=== PATIENT | female | born 1990 | race Caucasian/White ===

== ENCOUNTER 2023-07-14 18:59 | Emergency (ER) | payer MEDICAID, SELFPAY ==
[2023-07-14 19:40] VITALS: BP 119/75; PULSE 83; RESP 20; TEMP 36.4; O2SAT 100
[2023-07-14 20:02] LABS: Basophils Percent Auto 0.1 % (0.2-1.2); Eosinophils Absolute Auto 0.2 K/mm3 (0-0.3); Eosinophils Percent Auto 1.7 % (0-4.4); Hematocrit 32.1 % (37.0-47.0); Hemoglobin 10.5 g/dL (12.0-15.0); Immature Granulocyte Absolute 0.04 K/mm3 (0.00-0.031); Immature Granulocyte Percent A 0.3 % (0-0.5); Lymphocytes Absolute Auto 2.85 K/mm3 (0.9-3.2); Lymphocytes Percent Auto 21.3 % (18.3-44.2); Mean Corpuscular HGB Conc 32.7 g/dl (32-36); Mean Corpuscular Hemoglobin 26.8 pg (26-34); Mean Corpuscular Volume 81.9 fl (80-100); Mean Platelet Volume 10.3 fl (7.4-10.4); Monocytes Absolute Auto 0.6 K/mm3 (0.1-0.6); Monocytes Percent Auto 4.7 % (2.6-8.5); Neutrophils Absolute Auto 9.6 K/mm3 (1.3-6.7); Neutrophils Percent Auto 71.9 % (45.5-73.1); Platelet Count Result 201 k/mm3 (150-375); Red Blood Count 3.92 M/mm3 (4.2-5.4); Red Cell Distribution Width 13.4 % (11.5-14.5); White Blood Count 13.4 K/mm3 (4.5-10.0)
[2023-07-14 20:06] LABS: Appearance Urine Turbid (Clear); Bacteria Urine 4+ /hpf; Bilirubin Urine Negative (Negative); Blood Urine 3+ (Negative); Color Urine Yellow (Yellow); Glucose Urine UA Negative (Negative); Ketones Urine Trace mg/dL (Negative); Leukocyte Esterase Ur 3+ LEU/UL (Negative); Nitrate Urine Positive (Negative); Non Pathogenic Casts 0-2; Protein Urine 2+ mg/dL (Negative); RBC Urine 51-100 /hpf (0-2); Specific Grav Ur 1.018 (1.001-1.035); Squamous Epithelial Cell Urine Moderate /hpf (Few); Urobilinogen Urine 0.2 mg/dL (<2.0); WBC Urine >100 /hpf; pH Urine 5.5 (5.0-9.0)
[2023-07-14 20:08] LABS: Add Urine Microscopic? YES
[2023-07-14 20:14] LABS: Alanine Aminotransferase 28 U/L (6-35); Alkaline Phosphatase 72 U/L (38-126); Anion Gap 8 mmol/L (8-16); Aspartate Amino Transferase 25 U/L (14-36); Bilirubin,Total 0.5 mg/dL (0.2-1.3); Blood Urea Nitrogen 7 mg/dL (7-17); Carbon Dioxide 22 mmol/L (22-30); Chloride 104 mmol/L (98-107); Estimated CRCL calculation 120 ml/min; Estimated Glomerular Filt Rate > 60; Glucose 90 mg/dL (65-110); Potassium 3.5 mmol/L (3.4-5.0); Sodium 134 mmol/L (137-145)
--- NOTE | 2023-07-14 21:13 | ED.GENADULT ---
HPI - General Adult General Chief complaint: Abdominal Pain Stated complaint: RIGHT FLANK Time Seen by Provider: 07/14/23 21:12 History of Present Illness HPI narrative: Patient presents to the emergency department with concern for urinary tract infection and possibly pyelonephritis. She has noted that her urine is more concentrated and she has been drinking a lot more fluids. Today started having right-sided abdominal pain in the flank area. Denies fevers or chills. Was seen at her doctor's 2 weeks ago and told that she does not have a urinary tract infection. Patient is overall well-appearing without vomiting Review of Systems Review of Systems: Negative except what is documented in the HPI Exam Narrative: GENERAL: Well-appearing, well-nourished, and in no acute distress. HEAD: Normocephalic, atraumatic. EYES: PERRLA and EOMI. ENT: Nares clear, no rhinorrhea or epistaxis. Mucous membranes moist. NECK: Supple. CHEST: Clear to auscultation. No respiratory distress. HEART: Regular rate and rhythm. ABDOMEN: Soft, nontender, nondistended. EXTREMITIES: Normal range of motion. No edema. SKIN: Warm, dry, no rash. NEURO: No focal deficits. Alert and oriented x3. PSYCH: Normal mood and affect. Course Course Emergency Course: Location of discomfort not in kidney area so concern for pyelonephritis is lower. Patient is afebrile and well-appearing. She has a urinary tract infection. She has not been on antibiotics recently but notes getting urinary tract infections with her . Will DC with p.o. antibiotics. Shared decision making regarding plan for follow-up and when to return to the emergency department. Vital Signs Vital signs: Vital Signs Temperature 36.4 C L 07/14/23 19:40 Pulse Rate 83 07/14/23 19:40 Respiratory Rate 20 07/14/23 19:40 Blood Pressure 119/75 07/14/23 19:40 Pulse Oximetry 100 07/14/23 19:40 Oxygen Delivery Room Air 07/14/23 19:40 Temperature 36.4 C L 07/14/23 19:40 Pulse Rate 83 07/14/23 19:40 Respiratory Rate 20 07/14/23 19:40 Blood Pressure 119/75 07/14/23 19:40 Pulse Oximetry 100 07/14/23 19:40 Oxygen Delivery Room Air 07/14/23 19:40 Medical Decision Making Vital Signs Vital Signs: Vital Signs Temperature 36.4 C L 07/14/23 19:40 Pulse Rate 83 07/14/23 19:40 Respiratory Rate 20 07/14/23 19:40 Blood Pressure 119/75 07/14/23 19:40 Pulse Oximetry 100 07/14/23 19:40 Oxygen Delivery Room Air 07/14/23 19:40 Temperature 36.4 C L 07/14/23 19:40 Pulse Rate 83 07/14/23 19:40 Respiratory Rate 20 07/14/23 19:40 Blood Pressure 119/75 07/14/23 19:40 Pulse Oximetry 100 07/14/23 19:40 Oxygen Delivery Room Air 07/14/23 19:40 Lab Data 07/14/23 19:54 07/14/23 19:54 Labs: Lab Results 07/14/23 Range/Units 19:54 WBC 13.4 H (4.5-10.0) K/mm3 RBC 3.92 L (4.2-5.4) M/mm3 Hgb 10.5 L (12.0-15.0) g/dL Hct 32.1 L (37.0-47.0) % MCV 81.9 (80-100) fl MCH 26.8 (26-34) pg MCHC 32.7 (32-36) g/dl RDW 13.4 (11.5-14.5) % Plt Count 201 (150-375) k/mm3 MPV 10.3 (7.4-10.4) fl Immature Gran % (Auto) 0.3 (0-0.5) % Neut % (Auto) 71.9 (45.5-73.1) % Lymph % (Auto) 21.3 (18.3-44.2) % Greenlee % (Auto) 4.7 (2.6-8.5) % Eos % (Auto) 1.7 (0-4.4) % Baso % (Auto) 0.1 L (0.2-1.2) % Lymph # (Auto) 2.85 (0.9-3.2) K/mm3 Greenlee # (Auto) 0.6 (0.1-0.6) K/mm3 Eos # (Auto) 0.2 (0-0.3) K/mm3 Baso # (Auto) 0.0 (0.0-0.1) K/mm3 Abs Immat Gran (auto) 0.04 H (0.00-0.031) K/mm3 Absolute Neuts (auto) 9.6 H (1.3-6.7) K/mm3 Absolute Nucleated RBC 0.0 (0.0-0.012) K/mm3 Nucleated RBC % 0.0 (0.0-0.2) % Sodium 134 L (137-145) mmol/L Potassium 3.5 (3.4-5.0) mmol/L Chloride 104 (98-107) mmol/L Carbon Dioxide 22 (22-30) mmol/L Anion Gap 8 (8-16) mmol/L BUN 7 (7-17) mg/dL Creatinine 0.60 L (0.7-1.0) mg/dL Estim Creat Clear Calc 120
[2023-07-14] MEDS: CEPHALEXIN 500 MG CAPSULE PO (21:30)
== END 2023-07-14 22:00 | disposition home or self-care (01) ==
PROVIDERS: Emergency Medicine; Emergency Provider Emergency Medicine
DX: O23.42 Unspecified infection of urinary tract in pregnancy, second trimester (principal); N39.0 Urinary tract infection, site not specified; Z3A.22 22 weeks gestation of pregnancy
CPT/HCPCS: 36415; 80053; 81001; 85025; 87077; 87086; 87186; 99283; A9270